=== PATIENT | female | born 2000 | race Caucasian/White ===

== ENCOUNTER 2021-03-04 21:45 | Emergency (ER) | payer MEDICAID ==
[~2021-03-04] VITALS: Ht 165.1 cm; Wt 58.0 kg
[2021-03-05] MEDS ORDERED: SODIUM CHLORIDE 0.9% 1,000 ML IV ONE (00:45)
[2021-03-05 01:04] LABS: BASOPHILS % 0.4 % (0.0-2.0); EOSINOPHILS % 1.2 % (0.0-5.0); HEMATOCRIT. 34.1 % (36.0-48.0); HEMOGLOBIN. 11.6 g/dL (12.0-16.0); LYMPHOCYTES % 31.3 % (20.0-50.0); MEAN CORPUSCULAR HEMOGLOBIN 28.6 pg (28.0-32.0); MEAN CORPUSCULAR VOLUME 84.4 fL (81.0-99.0); MEAN PLATELET VOLUME 8.7 fl (7.4-10.4); MONOCYTES % 8.1 % (2.0-8.0); PLATELET 252 x1000/uL (130-400); RED BLOOD CELL COUNT 4.04 mill/uL (4.2-5.4); RED CELL DISTRIBUTION WIDTH 15.5 % (11.6-14.6)
[2021-03-05 01:16] LABS: CHLORIDE 110 mEq/L (98-107)
[2021-03-05 01:18] LABS: HCG SCREEN NEGATIVE
[2021-03-05 04:00] VITALS: BP 108/72
== END 2021-03-05 04:00 | disposition home or self-care (01) ==
LOC: ER 21:45
DX: R42 Dizziness and giddiness (principal)
CPT/HCPCS: 36415; 80053; 81025; 84703; 85025; 86850; 86900; 86901; 93005; 99284; J7030